=== PATIENT | female | born 1975 | race Two or more races ===

== ENCOUNTER 2017-02-17 07:55 | Emergency (ER) | payer MEDICAID ==
[~2017-02-17] VITALS: Ht 157.5 cm; Wt 59.9 kg
[~2017-02-17 07:55] MED LIST: ATARAX50 MG ORAL; BACITRACIN15 GM TOPIC; FLUCONAZOLE100 MG ORAL; TRAMADOL HCL50 MG ORAL
[2017-02-17 07:59] VITALS: BP 144/91
--- NOTE | 2017-02-17 08:29 | Emergency Room Report ---
History of Present Illness General Chief Complaint: Pain Source: Patient Present Illness HPI Patient presents with complaints of right breast pain Patient reports that last night she felt increased pain in the area lower area Denies any fevers or chills Denies any palpation of any mass Denies any discharge Patient's last menstrual cycle was 2-3 weeks ago Denies any other chest pain or shortness of breath pain is 6/10 localized as above denies any radiation to the axilla Allergies: Uncoded Allergies: PENICILLIN (Allergy, Unknown, fever, 07/03/15) Patient History Past Medical History: see triage record Pertinent Family History: none Last Menstrual Period: 01/27/17 Now: No : 4 Para: 4 Reviewed Nursing Documentation: PMH: Agreed, PSxH: Agreed Nursing Documentation-PMH Past Medical History: No Stated History Review of Systems All Other Systems: negative except mentioned in HPI Physical Exam Vital Signs Date Time Temp Pulse Resp B/P (MAP) Pulse Ox O2 Delivery O2 Flow Rate FiO2 02/17/17 07:59 98.4 20 144/91 99 Room Air 02/17/17 07:59 90 Sp02 EP Interpretation: reviewed, normal General Appearance: well appearing, no apparent distress Head: normocephalic, atraumatic Eyes: bilateral eye PERRL, bilateral eye EOMI ENT: hearing grossly normal, normal pharynx, TMs + canals normal, uvula midline Neck: full range of motion, supple, no meningismus, no bony tend Respiratory: lungs clear, normal breath sounds, no rhonchi, no respiratory distress, no retraction, no accessory muscle use Cardiovascular #1: normal peripheral pulses, regular rate, rhythm, no edema, no gallop, no JVD, no murmur Gastrointestinal: normal bowel sounds, non tender, soft, no mass, no organomegaly, non-distended, no guarding, no hernia, no pulsatile mass, no rebound Genitourinary: no CVA tenderness Musculoskeletal: normal inspection Neurologic: oriented x3, responsive, heat treater head III-XII nml as tested, motor strength/ tone normal, sensory intact Psychiatric: mood/affect normal Skin: normal color, no rash, warm/dry, palpation normal, other - Right breast exam with a female nurse at bedside does not reveal any masses, there is no lymph node palpation in the axilla, no expressible fluid from the areola Lymphatic: normal inspection, no adenopathy Medical Decision Making Diagnostic Impression: Primary Impression: Breast pain in female ER Course Patient's clinical exam does not reveal any acute pathology Thyroid does not show any masses The rest exam does not reveal any palpable pathology I do not feel that emergency ultrasonography is useful at this time And the patient is otherwise appropriate for close outpatient followup Last Vital Signs Date Time Temp Pulse Resp B/P (MAP) Pulse Ox O2 Delivery O2 Flow Rate FiO2 02/17/17 07:59 98.4 90 20 144/91 99 Room Air Status: unchanged Disposition: HOME, SELF-CARE Condition: Stable Referrals: NOT CHOSEN IPA/MD,REFERRING (PCP) Additional Instructions: Patient is provided with the discharge instructions notified to follow up with primary doctor in the next 2-3 days otherwise return to the er with any worsening symptoms. Please note that this report is being documented using [employer] technology. This can lead to erroneous entry secondary to incorrect interpretation by the dictating instrument. ED ELLISON D.O. Feb 17, 2017 08:29
[2017-02-17] MEDS ORDERED: IBUPROFEN600 MG ORAL (08:31)
[2017-02-17 08:44] VITALS: BP 114/75
== END 2017-02-17 08:47 | disposition home or self-care (01) ==
LOC: EMR 08:19
DX: N64.4 Mastodynia (principal); Z88.0 Allergy status to penicillin
CPT/HCPCS: 99282

== ENCOUNTER 2019-03-16 11:53 | Emergency (ER) | payer MEDICAID ==
[~2019-03-16] VITALS: Ht 162.6 cm; Wt 68.0 kg
[~2019-03-16 11:53] MED LIST changes: +IBUPROFEN600 MG ORAL
[2019-03-16] MEDS ORDERED: PRILOSEC OTC20 MG ORAL (12:01)
--- NOTE | 2019-03-16 12:40 | Emergency Room Report ---
History of Present Illness General Chief Complaint: Skin Rash/Abscess Source: Patient Present Illness HPI 44-year-old female with no significant past medical history here complaining of a very pruritic rash in the inner thighs bilaterally spreading to vaginal area as well as suprapubic. Patient reports that she has had multiple times in the past and has tried different creams given by her primary care however none have been working. Patient denies any fall or injury to the area, recent camping, or tooth disease. Patient reports that she wears tight clothing. Denies any discharge abdominal pain, nausea vomiting. Contact dermatitis noted in the inner thighs. Allergies: Coded Allergies: PENICILLINS (Verified Allergy, Unknown, 03/16/19) Patient History Past Medical History: see triage record Past Surgical History: unable to obtain Pertinent Family History: none Last Menstrual Period: 03/10/19 Now: No Immunizations: UTD Reviewed Nursing Documentation: PMH: Agreed; PSxH: Agreed Nursing Documentation-PMH Past Medical History: No Stated History Review of Systems All Other Systems: negative except mentioned in HPI Physical Exam Vital Signs Date Time Temp Pulse Resp B/P (MAP) Pulse Ox O2 Delivery O2 Flow Rate FiO2 03/16/19 11:56 98.2 101 18 155/87 (109) 96 Room Air Sp02 EP Interpretation: reviewed, normal General Appearance: no apparent distress, alert, GCS 15, non-toxic Head: normocephalic, atraumatic Eyes: bilateral eye normal inspection, bilateral eye PERRL ENT: hearing grossly normal, normal pharynx, no angioedema, normal voice Neck: full range of motion, supple/symm/no masses Respiratory: chest non-tender, lungs clear, normal breath sounds, speaking full sentences Cardiovascular #1: regular rate, rhythm, no edema, no murmur Gastrointestinal: normal bowel sounds, non tender, soft, non-distended, no guarding, no rebound Genitourinary: normal inspection, no CVA tenderness Musculoskeletal: normal inspection, back normal, digits/nails normal Neurologic: alert, oriented x3, responsive, motor strength/tone normal, sensory intact, speech normal Psychiatric: judgement/insight normal, memory normal, mood/affect normal, no suicidal/homicidal ideation Skin: rash - Eczema in her thighs, possible tinea cruris of the pubic area Lymphatic: normal inspection, no adenopathy Medical Decision Making PA Attestation All my diagnosis and treatment plans were reviewed ad discussed with my supervising physician Dr. Lujan Diagnostic Impression: Primary Impression: Contact dermatitis Additional Impression: Tinea cruris ER Course 44-year-old female with no significant past medical history here complaining of a very pruritic rash in the inner thighs bilaterally spreading to vaginal area as well as suprapubic. Patient reports that she has had multiple times in the past and has tried different creams given by her primary care however none have been working. Patient denies any fall or injury to the area, recent camping, or tooth disease. Patient reports that she wears tight clothing. Denies any discharge abdominal pain, nausea vomiting. Contact dermatitis noted in the inner thighs. Ddx considered but are not limited to: Eczema, scabies, lice, tinea cruris Vital signs: are WNL, pt. is afebrile H&PE are most consistent with: Contact dermatitis, tinea cruris ORDERS: Lotrisone cream, triamcinolone ED INTERVENTIONS: None required at this time. DISCHARGE: At this time pt. is stable for d/c to home. Will provide printed patient care instructions, and any necessary prescriptions. Care plan and follow up instructions have been discussed with the patient prior to discharge. Advised patient care provider to thoroughbred horse farm manager Last Vital Signs Date Time Temp Pulse Resp B/P (MAP) Pulse Ox O2 Delivery O2 Flow Rate FiO2 03/16/19 11:56 98.2 101 18 155/87 (109) 96 Room Air Disposition: HOME, SELF-CARE Condition: Stable Scripts Diphenhydramine HCl (Benadryl) 25 Mg Capsule 25 MG PO BID, #20 CAP Prov: Paty Acevedo 03/16/19 Clotrimazole/Betamethasone Dip* (LOTRISONE CREAM*) 15 Gm Cream..g. 2 GM TP TWICE A DAY, #15 GM 0 Refills Prov: Paty Acevedo 03/16/19 Triamcinolone Acet (Triamcinolone Acetonide) 15 Gm Cream..g. 2 GM APPLIC TID, #15 GM 0.1% Prov: Paty Acevedo 03/16/19 Referrals: NON PHYSICIAN (PCP) Patient Instructions: Contact Dermatitis, [id number], Jock Itch, [id number] Additional Instructions: Have your primary doctor and sent to a thoroughbred horse farm manager as well as multiple sclerosis nurse also is recommended to be seen by sock ironer if you start having a rash in the vaginal canal. If worsening symptoms return to the emergency room Paty Acevedo Mar 16, 2019 12:40
[2019-03-16] MEDS ORDERED: BENADRYL25 M3 PO (12:42)
[2019-03-16] MEDS ORDERED: KENALOG 0.025%15 GM APPLIC (12:42)
[2019-03-16] MEDS ORDERED: LOTRISONE CREAM15 GM TP (12:42)
--- NOTE | 2019-03-16 12:45 | NUR ---
ER DISCHARGE NOTE: Patient is cleared to be discharged per ERMD, pt is aox4, on room air, with stable vital signs. pt was given dc and prescription instructions, pt was able to verbalize understanding, pt is able to ambulate with steady gait. pt took all belongings.
[2019-03-16 12:47] VITALS: BP 155/87
[2019-03-16 12:51] VITALS: BP 155/87
== END 2019-03-16 12:50 | disposition home or self-care (01) ==
LOC: EMR 12:21
DX: L25.9 Unspecified contact dermatitis, unspecified cause (principal); B35.6 Tinea cruris; Z88.0 Allergy status to penicillin
CPT/HCPCS: 99282

== ENCOUNTER 2019-04-19 08:06 | Emergency (ER) | payer MEDICAID ==
[~2019-04-19] VITALS: Ht 157.5 cm; Wt 56.7 kg
[~2019-04-19 08:06] MED LIST changes: +BENADRYL25 M3 PO; +KENALOG 0.025%15 GM APPLIC; +LOTRISONE CREAM15 GM TP; +PRILOSEC OTC20 MG ORAL
[2019-04-19 08:14] VITALS: BP 126/83
--- NOTE | 2019-04-19 08:24 | NUR ---
ED Nurse Note: PT FROM HOME D/T RASHES WITH ITCHINESS ON HER STOMACH AND GROIN 4 DAYS. PT WAS SEEN HERE 2 MONTHS AGO FOR WITH THE SAME COMPLAINT. AAO 4, AMBULATORY. NOTED REDNESS ON LOWER ABDOMEN AND BILATERAL GROIN.
[2019-04-19] MEDS ORDERED: DiphenhydrAMINE 50mg/ml Inj IVP ONE (08:30)
--- NOTE | 2019-04-19 08:40 | NUR ---
ED Nurse Note: COLLECTED URINE/BLOOD THEN SENT TO LAB.
[2019-04-19] MEDS ORDERED: Solu-MEDROL 125mg Inj IVP ONE (08:45)
[2019-04-19 09:34] LABS: ANION GAP 7 mmol/L (5-15); BLOOD UREA NITROGEN 15 mg/dL (7-18); CALCIUM 8.8 MG/DL (8.5-10.1); CARBON DIOXIDE 29 MMOL/L (21-32); CHLORIDE 103 MMOL/L (98-107); CREATININE 0.8 MG/DL (0.55-1.30); POTASSIUM 3.6 MMOL/L (3.5-5.1); SODIUM 139 MMOL/L (136-145)
[2019-04-19 09:38] LABS: ALANINE AMINOTRANSFERASE 19 U/L (12-78); ALBUMIN 3.8 G/DL (3.4-5.0); ALBUMIN/GLOBULIN RATIO 0.7 (1.0-2.7); ALKALINE PHOSPHATASE 73 U/L (46-116); ASPARTATE AMINO TRANSFERASE 17 U/L (15-37); BILIRUBIN,TOTAL 0.3 MG/DL (0.2-1.0)
[2019-04-19 09:52] LABS: BASOPHILS % (AUTO) 0.4 % (0.0-2.0); EOSINOPHILS % (AUTO) 6.9 % (0.0-3.0); HEMATOCRIT 40.3 % (37.0-47.0); HEMOGLOBIN 12.5 G/DL (12.0-16.0); LYMPHOCYTES % (AUTO) 33.5 % (20.0-45.0); MEAN CORPUSCULAR VOLUME 84 FL (80-99); NEUTROPHILS % (AUTO) 49.2 % (45.0-75.0); PLATELET COUNT 435 K/UL (150-450); RED BLOOD COUNT 4.78 M/UL (4.20-5.40); RED CELL DISTRIBUTION WIDTH 13.5 % (11.6-14.8); WHITE BLOOD COUNT 6.7 K/UL (4.8-10.8)
[2019-04-19] MEDS ORDERED: PREDNISONE20 MG ORAL (10:09)
[2019-04-19] MEDS ORDERED: DIPHENHYDRAMINE25 M1 ORAL (10:09)
[2019-04-19] MEDS ORDERED: CLOTRIMAZOLE15 GM TOPIC (10:09)
[2019-04-19 10:22] VITALS: BP 132/70
--- NOTE | 2019-04-19 10:22 | NUR ---
ER DISCHARGE NOTE: Patient is cleared to be discharged per ERMD, pt is aox4, on room air, with stable vital signs. pt was given dc and prescription instructions, pt was able to verbalize understanding, pt id band and iv site removed without complications. pt is able to ambulate with steady gait. pt took all belongings.
--- NOTE | 2019-04-19 10:33 | Emergency Room Report ---
History of Present Illness General Chief Complaint: Skin Rash/Abscess Source: Patient Present Illness HPI Patient is a 43-year-old female presents after increased skin rash. Patient describes having several weeks of itchy rash to the perineal area. She denies any fever. She reports having increased itching to the lower pelvic area. She denies being . She denies any vaginal discharge. She had been using clotrimazole without improvement. Denies any other locations of discomfort. Denies being diabetic. Allergies: Coded Allergies: PENICILLINS (Verified Allergy, Unknown, 03/16/19) Patient History Past Medical History: see triage record Last Menstrual Period: 04/10/2019 Now: No Reviewed Nursing Documentation: PMH: Agreed; PSxH: Agreed Nursing Documentation-PMH Past Medical History: No History, Except For Review of Systems All Other Systems: negative except mentioned in HPI Physical Exam Vital Signs Date Time Temp Pulse Resp B/P (MAP) Pulse Ox O2 Delivery O2 Flow Rate FiO2 04/19/19 08:14 98.2 104 16 126/83 97 Room Air General Appearance: normal inspection, well appearing, no apparent distress, alert, GCS 15 Head: normocephalic, atraumatic ENT: hearing grossly normal, normal voice Neck: full range of motion, supple Respiratory: no respiratory distress, speaking full sentences Cardiovascular #1: normal inspection Gastrointestinal: normal inspection, normal bowel sounds, non tender, soft Musculoskeletal: normal inspection Neurologic: normal inspection, alert, oriented x3, responsive, chaplain resident III-XII nml as tested, normal gait Psychiatric: mood/affect normal Skin: rash - perineal rash Medical Decision Making Diagnostic Impression: Primary Impression: Rash ER Course Patient presented for perineal rash. Differential diagnosis include was not limited to cellulitis, fungal infection, abscess, allergic reaction among others. Because of complexity of patient's case laboratory tests were ordered. Patient noted to have normal white blood count. Patient was given IV Benadryl as well as IV steroids with improvement in her rash. Patient appears to be stable for outpatient management. She was given prescription for medication for symptomatic treatment. She is advised to have wound rechecked in 1 to 2 days with her primary care physician she is advised to return if worse. Last Vital Signs Date Time Temp Pulse Resp B/P (MAP) Pulse Ox O2 Delivery O2 Flow Rate FiO2 04/19/19 10:22 97.9 98 15 132/70 99 Room Air Status: improved Disposition: HOME, SELF-CARE Condition: Stable Scripts Prednisone* (PREDNISONE*) 20 Mg Tablet 40 MG ORAL DAILY, #10 TAB Prov: Henrry Ramos MD 04/19/19 Clotrimazole* (LOTRIMIN*) 15 Gm Cream..g. 1 APPLIC TOPIC TWICE A DAY, #30 GM Prov: Henrry Ramos MD 04/19/19 Diphenhydramine Hcl* (DIPHENHYDRAMINE HCL*) 25 Mg Capsule 25 MG ORAL Q8H PRN for Itching, #30 CAP 0 Refills Prov: Henrry Ramos MD 04/19/19 Referrals: NOT CHOSEN IPA/,REFERRING (PCP) Patient Instructions: Rash Additional Instructions: Follow up with your doctor for recheck. Return if worse. Henrry Ramos MD Apr 19, 2019 10:33
== END 2019-04-19 10:22 | disposition home or self-care (01) ==
LOC: EMR 09:01
DX: R21 Rash and other nonspecific skin eruption (principal); Z88.0 Allergy status to penicillin
CPT/HCPCS: 36415; 80053; 81025; 85025; 96374; 96375; J1200; J2930; Z7502; 99284

== ENCOUNTER 2019-05-02 13:24 | Emergency (ER) | payer MEDICAID ==
[~2019-05-02] VITALS: Ht 157.5 cm; Wt 54.4 kg
[~2019-05-02 13:24] MED LIST changes: +CLOTRIMAZOLE15 GM TOPIC; +DIPHENHYDRAMINE25 M1 ORAL; +PREDNISONE20 MG ORAL
--- NOTE | 2019-05-02 13:30 | Emergency Room Report ---
History of Present Illness General Chief Complaint: Headache Source: Patient Present Illness HPI Patient is a 43-year-old female presents after increased headache. Patient had gradual onset of symptoms. She reports having increased nausea and vomiting. She reports having a prior history of migraines however this appears to be worse. She is recently been taking Benadryl for an allergic reaction. She denies any fever. She reports having pain prior primarily to the back of her head. Multiple episodes of vomiting after eating a garlic mixture Allergies: Coded Allergies: PENICILLINS (Verified Allergy, Unknown, 03/16/19) Patient History Past Medical History: see triage record Now: No Reviewed Nursing Documentation: PMH: Agreed; PSxH: Agreed Nursing Documentation-PMH Hx Gastrointestinal Problems: Yes - gastrities Review of Systems All Other Systems: negative except mentioned in HPI Physical Exam Vital Signs Date Time Temp Pulse Resp B/P (MAP) Pulse Ox O2 Delivery O2 Flow Rate FiO2 05/02/19 13:19 97.5 110 20 152/84 (106) 100 Room Air Sp02 EP Interpretation: reviewed, normal General Appearance: normal inspection, well appearing, no apparent distress, alert, GCS 15 Head: atraumatic ENT: normal ENT inspection, hearing grossly normal, normal voice Neck: normal inspection, full range of motion, supple, no bony tend Respiratory: normal inspection, lungs clear, normal breath sounds, no respiratory distress, no retraction, no wheezing Cardiovascular #1: regular rate, rhythm, no edema Gastrointestinal: normal inspection, normal bowel sounds, non tender, soft, no guarding, no hernia Genitourinary: no CVA tenderness Musculoskeletal: normal inspection, back normal, normal range of motion Neurologic: alert, motor strength/tone normal, tomato pulper operator III-XII nml as tested, responsive, speech normal, normal inspection Psychiatric: normal inspection, judgement/insight normal, mood/affect normal Medical Decision Making Last Vital Signs Date Time Temp Pulse Resp B/P (MAP) Pulse Ox O2 Delivery O2 Flow Rate FiO2 05/02/19 13:19 97.5 110 20 152/84 (106) 100 Room Air Henrry Ramos MD May 02, 2019 13:30
[2019-05-02] MEDS ORDERED: Metoclopramide 10mg/2ml Inj IVP ONE (13:45)
[2019-05-02] MEDS ORDERED: DiphenhydrAMINE 50mg/ml Inj IVP ONE (13:45)
--- NOTE | 2019-05-02 13:45 | NUR ---
ED Nurse Note: pt came in via ra 29 with daughter from home for headache and n/v since this morning. ermd eval done SL established blood and urine sent pt medicated and down to CT now.
[2019-05-02 13:57] LABS: BASOPHILS % (AUTO) 0.9 % (0.0-2.0); EOSINOPHILS % (AUTO) 0.6 % (0.0-3.0); HEMATOCRIT 36.1 % (37.0-47.0); HEMOGLOBIN 11.5 G/DL (12.0-16.0); LYMPHOCYTES % (AUTO) 15.8 % (20.0-45.0); MEAN CORPUSCULAR VOLUME 84 FL (80-99); MONOCYTES % (AUTO) 5.9 % (1.0-10.0); NEUTROPHILS % (AUTO) 76.8 % (45.0-75.0); PLATELET COUNT 367 K/UL (150-450); RED BLOOD COUNT 4.31 M/UL (4.20-5.40); RED CELL DISTRIBUTION WIDTH 14.3 % (11.6-14.8); WHITE BLOOD COUNT 14.3 K/UL (4.8-10.8)
[2019-05-02 14:03] LABS: APPEARANCE,URINE SLIGHTLY CLOUDY; BILIRUBIN, URINE NEGATIVE (NEGATIVE); COLOR,URINE PALE YELLOW; GLUCOSE, URINE (UA) NEGATIVE (NEGATIVE); KETONES,URINE NEGATIVE (NEGATIVE); LEUKOCYTE ESTERASE ,URINE NEGATIVE (NEGATIVE); NITRITE,URINE NEGATIVE (NEGATIVE); PH,URINE 5 (4.5-8.0); PROTEIN,URINE 1+ (NEGATIVE); UROBILINOGEN,URINE NORMAL MG/DL (0.0-1.0)
[2019-05-02 14:06] LABS: ANION GAP 12 mmol/L (5-15); BLOOD UREA NITROGEN 17 mg/dL (7-18); CALCIUM 9.1 MG/DL (8.5-10.1); CARBON DIOXIDE 24 MMOL/L (21-32); CHLORIDE 102 MMOL/L (98-107); CREATININE 0.6 MG/DL (0.55-1.30); POTASSIUM 3.5 MMOL/L (3.5-5.1); SODIUM 138 MMOL/L (136-145)
[2019-05-02 14:07] VITALS: BP 110/78
--- NOTE | 2019-05-02 14:08 | NUR ---
ED Nurse Note: pt back from ct placed on monitor sleeping. VSS
[2019-05-02 14:10] LABS: ALANINE AMINOTRANSFERASE 26 U/L (12-78); ALBUMIN/GLOBULIN RATIO 0.9 (1.0-2.7); ALKALINE PHOSPHATASE 62 U/L (46-116); ASPARTATE AMINO TRANSFERASE 20 U/L (15-37); BILIRUBIN,TOTAL 0.3 MG/DL (0.2-1.0)
--- NOTE | 2019-05-02 14:11 | Diagnostic Imaging Report ---
EXAM: CT Head Without Intravenous Contrast CLINICAL HISTORY: PAIN TECHNIQUE: Axial computed tomography images of the head/brain without intravenous contrast. CTDI is 60 mGy and DLP is 1184.2 mGy-cm. One or more of the following dose reduction techniques were used: automated exposure control, adjustment of the mA and/or kV according to patient size, use of iterative reconstruction technique. COMPARISON: No relevant prior studies available. FINDINGS: Brain: No hemorrhage. No edema. Ventricles: No ventriculomegaly. Bones/joints: No acute fracture. Soft tissues: Unremarkable. Sinuses: No acute sinusitis. Mastoid air cells: No mastoid effusion. IMPRESSION: No acute intracranial process.
[2019-05-02] MEDS ORDERED: ZOFRAN4 M3 ORAL (14:31)
[2019-05-02] MEDS ORDERED: OMEPRAZOLE20 M2 ORAL (14:31)
[2019-05-02 14:48] VITALS: BP 113/79
[2019-05-02 16:00] VITALS: BP 113/72
--- NOTE | 2019-05-02 16:00 | NUR ---
ED Nurse Note: Pt cleared by health care Provider for discharge. DC instructions/prescription was given and explained to pt and verbalized understanding of teachings. All medical deviecs such as ID band removed. Pt is AAO x4, ambulatory and left with all personal belongings.
== END 2019-05-02 16:00 | disposition home or self-care (01) ==
LOC: EDBD 13:24 → EMR 13:59
DX: R51 Headache (principal); Z88.0 Allergy status to penicillin; R11.2 Nausea with vomiting, unspecified
CPT/HCPCS: 36415; 70450; 80053; 81001; 81025; 85025; 96374; 96375; J1200; J2765; Z7502; 99284